=== PATIENT | female | born 1975 | race Caucasian/White ===

== ENCOUNTER 2017-08-18 17:52 | Emergency (ER) | payer OTHER ==
[~2017-08-18] VITALS: Ht 162.6 cm; Wt 118.6 kg
[~2017-08-18 17:52] MED LIST: HYDR5SYP11 PO
[2017-08-18 17:56] VITALS: PULSE 73; TEMP 36.9; O2SAT 98; Ht 162.6 cm; Wt 118.6 kg
[2017-08-18] MEDS ORDERED: DOXYCYCLINE HYCLATE 100 MG CAP PO ONE (18:15)
--- NOTE | 2017-08-18 18:20 | EMERGENCY ROOM VISIT NOTE ---
History First contact with patient: 17:57 Chief Complaint: BITE Stated Complaint: TICK BITE History of Present Illness The patient is a 42 year old female who presents to the Emergency Room with complaints of a tick bite on her back. The patient reports that her boyfriend pulled a tick off, and reported that it looks like it has been there for a while , possibly 2 weeks. When asked with the tick looked like, the patient reports that it appeared dark in appearance. The patient is uncertain when she could have contracted this tick. She denies any pain, but reports that she noticed the tick when she noticed that her back was itching. She denies any recent headaches, myalgias, fevers or other flulike symptoms. Review of Systems 10 system review was performed and was negative except for pertinent positives and negatives as indicated in history of present illness Past Medical/Surgical History Medical Problems: (1) Pituitary adenoma (2) Pituitary insufficiency Family History FH: diabetes mellitus FH: hypertension Social History Smoking Status: Never Smoker Alcohol Use: occasionally Drug Use: none Marital Status: single Housing Status: lives alone Occupation Status: unemployed Current/Historical Medications Scheduled PRN Hydrocodone W/ Homatropine (Hycodan 5/1.5MG 5 Ml), 5-10 ML PO Q4H PRN for Cough Physical Exam Vital Signs Date Time Temp Pulse Resp B/P (MAP) Pulse Ox O2 Delivery O2 Flow Rate FiO2 08/18/17 17:56 36.9 73 16 149/103 98 Room Air Physical Exam CONSTITUTIONAL: Healthy and well nourished. Alert and oriented X 3 with positive affect. HEENT: Normocephalic, atraumatic. Pupils equal, round and reactive. NECK: Full active range of motion without discomfort. RESPIRATORY: Clear to auscultation bilaterally with no wheezing, crackles, rhonchi or stridor. CARDIOVASCULAR: Regular rate and rhythm with no murmurs, rubs or gallops. MUSCULOSKELETAL: Full range of motion of all joints without discomfort. INTEGUMENTARY: Examination shows a 8 mm diameter venous petty of the central back , just above the bra line. No induration or tenderness to palpation. Examination with an otoscope does not show any residual foreign body. NEUROLOGIC: No focal neurologic deficits noted. Medical Decision & Procedures ED Course Patient history and physical exam were performed. Nurse's notes were reviewed. Vital signs were reviewed, showing an elevated blood pressure 149/103. Education was provided regarding tick bites in appearance. I explained, regarding deer ticks, that the tick would not stay attached for 2 weeks. I also explained that the current appearance is from the breakage of blood vessels under the skin from which the tick feeds. Because the patient is uncertain how long the tick has been in place, and to reduce the risk for Lyme disease, I did suggest a single dose of doxycycline 200 mg orally. The patient was in agreement. Educational material was provided regarding tick bites. She was instructed to follow-up with her family doctor with any rash consistent with erythema migrans, or if she starts to develop other flulike symptoms, including fever, headache, muscle aches, back pain or other skin rashes. The patient was happy with plan of care, and voiced understanding of all discharge instructions. The patient was also encouraged to follow-up with her PCP for blood pressure recheck. Medical Decision See previous section Medication Reconcilliation Current Medication List: was personally reviewed by me Blood Pressure Screening Patient's blood pressure: Elevated blood pressure Blood pressure disposition: Referred to PCP Impression Primary Impression: Tick bite of back Additional Impression: Elevated blood pressure reading Departure Information Dispostion Home / Self-Care Forms HOME CARE DOCUMENTATION FORM, IMPORTANT VISIT INFORMATION Patient Instructions My [facility], ED Facts Tick Additional Instructions You have been provided a single dose of doxycycline 200 mg which should reduce your risk for Lyme disease. Watch for any developing rash over the next month. If you develop this rash, contact your family doctor for further follow-up. Problem Qualifiers Primary Impression: Tick bite of back Encounter type: initial encounter Qualified Codes: S30.860A - Insect bite ( nonvenomous) of lower back and pelvis, initial encounter; W57.XXXA - Bitten or stung by nonvenomous insect and other nonvenomous arthropods, initial encounter
[2017-08-18 18:25] VITALS: BP 127/88
== END 2017-08-18 18:28 | disposition home or self-care (01) ==
LOC: C.EDB 17:53 → C.EDD 18:28
DX: S20.469A Insect bite (nonvenomous) of unspecified back wall of thorax, initial encounter (principal); W57.XXXA Bitten or stung by nonvenomous insect and other nonvenomous arthropods, initial encounter; R03.0 Elevated blood-pressure reading, without diagnosis of hypertension; Z83.3 Family history of diabetes mellitus; Z82.49 Family history of ischemic heart disease and other diseases of the circulatory system